=== PATIENT | male | born 1985 | race Caucasian/White ===

== ENCOUNTER 2022-04-05 05:07 | Emergency (ER) | payer OTHER ==
[2022-04-05 05:24] VITALS: BP 123/81; PULSE 81; TEMP 98.4; BMI 31.4
[2022-04-05] MEDS ORDERED: ACETAMINOPHEN 500 MG TABLET (FP) PO ONE (05:28)
[2022-04-05] MEDS ORDERED: ACETAMINOPHEN 325 MG TABLET (FP) ONE (05:34)
== END 2022-04-05 06:14 | disposition home or self-care (01) ==
LOC: JER 05:07
DX: M54.50 Low back pain, unspecified (principal)
CPT/HCPCS: 99283-25